=== PATIENT | male | born 1995 | race African-American/Black ===

== ENCOUNTER 2016-04-30 13:07 | Emergency (ER) | payer MEDICAID ==
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
[2016-04-30 13:42] VITALS: BP 170/86; PULSE 103; RESP 20; TEMP 99; O2SAT 95
[2016-04-30] MEDS ORDERED: VANCOMYCIN 1 GM in NS 250 ML IV ONE (14:52)
[2016-04-30] MEDS ORDERED: IOPAMIDOL (ISOVUE-300) 100 ML BTL IV ONE (15:21)
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
== END 2016-04-30 16:40 | disposition home or self-care (01) ==
LOC: CED 13:07
DX: S39.012A Strain of muscle, fascia and tendon of lower back, initial encounter (principal); V48.0XXA Car driver injured in noncollision transport accident in nontraffic accident, initial encounter; Y92.410 Unspecified street and highway as the place of occurrence of the external cause
CPT/HCPCS: 72131-PO; Q9967